=== PATIENT | female | born 1955 | race African-American/Black ===

== ENCOUNTER 2016-11-05 07:54 | Emergency (ER) | payer OTHER ==
--- NOTE | 2016-11-05 08:03 | PDOC ---
History of Present Illness - General Chief Complaint: Injury Stated Complaint: SLIPPED OFF CHAIR, HIT HEAD Time Seen by Provider: 11/05/16 07:56 History Source: Patient Exam Limitations: No Limitations - History of Present Illness Initial Comments: 11/05/16 07:57 This patient is a 61-year-old female with a history of hypertension who presents emergency department by EMS status post a mechanical slip and fall off of her chair. Patient states that she was in her usual state of health, at work she attempted to pull a chair with wheels forward closer to the desk. When she did that the chair actually rolled backwards. She fell from a seated position on the chair to the ground and struck the back of her head. No loss of consciousness. No amnesia. Patient has pain at the back of her head and the back of her neck. She's had no nausea, no vomiting. Prior to falling she had no chest pain, no shortness of breath, no palpitations , no focal weakness or numbness. Patient denies generalized weakness, nausea, vomiting, diarrhea. Currently: pain is 6/10, throbbing, no alleviating factors, worse with palpation of her head, PMH: Hypertension PSH: Myomectomy Medications: Patient does not know, will call pharmacy ALL: NKDA Social: denies alcohol, drugs, cigarette use GENERAL/CONSTITUTIONAL: No: fever, chills, weakness, loss of appetite. HEAD, EYES, EARS, NOSE AND THROAT: Yes: "I can see my pulse" No: ear pain, discharge, sore throat, throat swelling. CARDIOVASCULAR: No: chest pain, lightheadedness, palpitations, syncope RESPIRATORY: No: cough, shortness of breath, wheezing GASTROINTESTINAL: No: nausea, vomiting GENITOURINARY: No: dysuria, hematuria, frequency, urgency, flank pain. MUSCULOSKELETAL: Yes: chronic knee pain, paraspinal neck pain No: back pain, muscle swelling or pain SKIN: No: lacerations NEUROLOGIC: Yes: headache No: vertigo, paresthesias, weakness GENERAL: The patient is in no acute distress. HEAD: Normal with no signs of trauma. EYES: PERRLA, EOMI, sclera anicteric, conjunctiva clear. ENT: Ears normal, nares patent, oropharynx clear without exudates. Moist mucous membranes. NECK: Normal range of motion, supple without lymphadenopathy, JVD, or masses. LUNGS: Breath sounds equal, clear to auscultation bilaterally. No wheezes, and no crackles. HEART:Regular rate and rhythm, normal S1 and S2 without murmur, rub or gallop. ABDOMEN: Soft, nontender, normoactive bowel sounds. No guarding, no rebound. No masses palpable. EXTREMITIES: Normal range of motion, no edema. No clubbing or cyanosis. No erythema, or tenderness. NEUROLOGICAL: Cranial nerves II through XII grossly intact. Normal speech. No focal neurological deficits. MUSCULOSKELETAL: Back non-tender to palpation, no CVA tenderness SKIN: Warm, Dry, normal turgor, no rashes or lesions noted. Past History - Past Medical History Allergies/Adverse Reactions: Allergies Allergy/AdvReac Type Severity Reaction Status Date / Time No Known Allergies Allergy Unverified 11/05/16 07:57 Home Medications: Ambulatory Orders Unobtainable [Unobtainable] 11/05/16 ED Treatment Course - RADIOLOGY Radiology Studies Ordered: Category Date Time Status CERVICAL SPINE CT W/O CONTR [CT] Stat CT Scan 11/05/16 07:[address] WITHOUT CONTRAST [CT] Stat CT Scan 11/05/16 07:56 Ordered Medical Decision Making - Medical Decision Making 11/05/16 08:03 Tried calling the pharmacy - They are not open yet She does not know the dosing or the names of her medications No one is home to give me the medication doses Pt going to CT now 11/05/16 08:07 11/05/16 08:45 CT head: No gross mass lesion, focal infarct, intracranial hemorrhage is identified. Visualized mastoid Air cells are well aerated CT cervical spine: Limited assessment of C5-T1 Straightening of the cervical spine, no gross fracture or subluxation. Posterior spur formation C3-C4, C5-C6, and likely C6-C7. No prevertebral soft tissue swelling is seen. Patient given Motrin for pain. Repeat blood pressure 180s/80s. Will discharge patient to home. Will ask patient to follow up with her primary care physician. Will ask patient to take her morning blood pressure medications when she gets home Pt friends are here with her to bring her home *DC/Admit/Observation/Transfer Diagnosis at time of Disposition: Fall from chair Qualifiers: Encounter type: initial encounter Qualified Code(s): W07.XXXA - Fall from chair , initial encounter Head trauma Qualifiers: Encounter type: initial encounter Qualified Code(s): S09.90XA - Unspecified injury of head, initial encounter - Discharge Dispostion Disposition: HOME Condition at time of disposition: Stable Admit: No - Patient Instructions Printed Discharge Instructions: DI for Closed Head Injury Additional Instructions: Thank you for coming in to the ER today Your head CT is negative for bleeding or fracture Please take medications as prescribed for pain You may have a headache, dizziness, fatigue, nausea as a result of hitting your head Please follow up with your primary doctor Please return to the ER for any other concerns or complaints - Post Discharge Activity Work/School Note: Back to Work
[2016-11-05 08:11] VITALS: TEMP 99.2; BMI 42.4
[2016-11-05] MEDS ORDERED: IBUPROFEN 600 MG TABLET (FP) PO ONE ×2 (08:38→08:44)
[2016-11-05 08:49] VITALS: BP 185/80; PULSE 86
== END 2016-11-05 08:58 | disposition home or self-care (01) ==
LOC: FER 07:54
CPT/HCPCS: 70450-TC; 72125-TC; 99281-25